=== PATIENT | male | born 1990 | race African-American/Black ===

== ENCOUNTER 2023-06-29 16:33 | Emergency (ER) | payer OTHER ==
[2023-06-29] MEDS ORDERED: ACETAMINOPHEN 500 MG TABLET PO ONE (18:00)
[2023-06-29] MEDS ORDERED: BACITRACIN 0.9 GM PACKET OINTMENT TP ONE (18:00)
[2023-06-29] MEDS ORDERED: IBUPROFEN 600 MG TABLET PO ONE (18:00)
[2023-06-29] MEDS ORDERED: PERTUSS(ACELL),DIPH,TET VAC/PF 0.5 ML SYRINGE IM. ONE (18:00)
[2023-06-29] MEDS ORDERED: BACLOFEN 10 MG TABLET PO ONE (18:00)
[2023-06-29] MEDS ORDERED: BACL10TA PO (18:36)
[2023-06-29] MEDS ORDERED: IBUP-1554 PO (18:36)
[2023-06-29] MEDS ORDERED: ACET-66 PO (18:36)
[2023-06-29 19:15] VITALS: BP 164/85; PULSE 85; RESP 20
== END 2023-06-29 20:06 | disposition home or self-care (01) ==
LOC: EDSEX 16:39 → EMS 16:39
DX: S41.111A Laceration without foreign body of right upper arm, initial encounter (principal); S13.4XXA Sprain of ligaments of cervical spine, initial encounter; S29.012A Strain of muscle and tendon of back wall of thorax, initial encounter; V49.88XA Car occupant (driver) (passenger) injured in other specified transport accidents, initial encounter; Y93.89 Activity, other specified; Y92.89 Other specified places as the place of occurrence of the external cause; Y99.8 Other external cause status
CPT/HCPCS: 71045; 72040; 72070; 90471; 90715; 99284